=== PATIENT | female | born 1995 | race African-American/Black ===

== ENCOUNTER 2018-03-20 13:39 | Emergency (ER) | payer MEDICAID ==
[~2018-03-20] VITALS: Ht 167.6 cm; Wt 89.0 kg
[2018-03-20 13:42] VITALS: BP 128/65
[2018-03-20 16:50] LABS: CLARITY URINE TURBID (CLEAR); COLOR URINE YELLOW (YELLOW); KETONES URINE NEGATIVE (NEGATIVE); LEUKOCYTE ESTERASE URINE 3+ (NEGATIVE); NITRITE URINE NEGATIVE (NEGATIVE); OCCULT BLOOD URINE 2+ (NEGATIVE); PH URINE 6.5 (4.5-8.0); PROTEIN URINE 2+ (NEGATIVE); UROBILINOGEN URINE 0.2 E.U./dL (0.2-1.0)
== END 2018-03-20 17:43 | disposition home or self-care (01) ==
LOC: ER 14:03
DX: N30.01 Acute cystitis with hematuria (principal)
CPT/HCPCS: 81003; 81025; 87086; 99284

== ENCOUNTER 2020-08-04 08:43 | Emergency (ER) | payer MEDICAID ==
[~2020-08-04] VITALS: Ht 175.3 cm; Wt 113.0 kg
[2020-08-04] MEDS ORDERED: DOCUSATE SODIUM SUGAR FREE 100MG/10ML UDC NG ONE (10:00)
[2020-08-04 12:43] VITALS: BP 130/76
== END 2020-08-04 12:43 | disposition home or self-care (01) ==
LOC: ER 09:39
DX: T16.1XXA Foreign body in right ear, initial encounter (principal); H61.23 Impacted cerumen, bilateral; X58.XXXA Exposure to other specified factors, initial encounter; Y93.89 Activity, other specified; Y92.89 Other specified places as the place of occurrence of the external cause; Y99.8 Other external cause status
CPT/HCPCS: 69209; 81025; 99284

== ENCOUNTER 2023-04-24 07:28 | Emergency (ER) | payer MEDICAID ==
[~2023-04-24] VITALS: Ht 175.3 cm; Wt 104.0 kg
[2023-04-24 07:33] VITALS: BP 129/84; RESP 20; TEMP 98.7; O2SAT 98
[2023-04-24 07:36] VITALS: PULSE 100
[2023-04-24 09:20] LABS: BASOPHILS % 0.6 % (0.0-2.0); EOSINOPHILS % 0.4 % (0.0-5.0); HEMATOCRIT. 40.3 % (36.0-48.0); HEMOGLOBIN. 13.4 g/dL (12.0-16.0); LYMPHOCYTES % 29.6 % (20.0-50.0); MEAN CORPUSCULAR HEMOGLOBIN 30.4 pg (28.0-32.0); MEAN CORPUSCULAR HGB CONC 33.1 g/dL (31.0-37.0); MEAN CORPUSCULAR VOLUME 91.6 fL (81.0-99.0); MEAN PLATELET VOLUME 7.8 fl (7.4-10.4); MONOCYTES % 6.3 % (2.0-8.0); NEUTROPHILS % 63.1 % (40.0-76.0); PLATELET 268 x1000/uL (130-400); WHITE BLOOD COUNT 9.2 x1000/uL (4.5-11.0)
[2023-04-24 09:30] LABS: CHLORIDE 110 mEq/L (98-107); INDEX HEMOLYSI 1 (1-3); INDEX ICTERIC 1 (1-4); INDEX LIPEMIC 1 (1-3); POTASSIUM 4.2 mEq/L (3.5-5.1); SODIUM 137 mEq/L (136-145)
[2023-04-24 09:37] LABS: ALANINE AMINOTRANSFERASE 19 IU/L (13-61); ALBUMIN 3.7 g/dL (3.4-5.0); ASPARTATE AMINOTRANSFERASE 15 IU/L (15-37); BILIRUBIN TOTAL 0.3 mg/dL (0.1-1.0); CALCIUM 8.7 mg/dL (8.5-10.1); CARBON DIOXIDE 23 mEq/L (21-32); CREATININE 0.6 mg/dL (0.6-1.3); GLUCOSE 106 mg/dL (70-105); PROTEIN TOTAL 7.8 g/dL (6.0-8.3); UREA NITROGEN BLOOD 9 mg/dL (7-21)
[2023-04-24 09:40] LABS: HCG SCREEN NEGATIVE
[2023-04-24 09:57] LABS: CLARITY URINE CLEAR (CLEAR); COLOR URINE YELLOW (YELLOW); GLUCOSE URINE NEGATIVE (NEGATIVE); KETONES URINE NEGATIVE (NEGATIVE); LEUKOCYTE ESTERASE URINE NEGATIVE (NEGATIVE); NITRITE URINE NEGATIVE (NEGATIVE); OCCULT BLOOD URINE NEGATIVE (NEGATIVE); PROTEIN URINE NEGATIVE (NEGATIVE); SPECIFIC GRAVITY URINE 1.009 (1.005-1.030); UROBILINOGEN URINE 0.2 E.U./dL (0.2-1.0)
== END 2023-04-24 10:25 | disposition home or self-care (01) ==
LOC: ER 07:28
DX: R35.0 Frequency of micturition (principal)
CPT/HCPCS: 36415; 80053; 81003; 81025; 84703; 85025; 99283

== ENCOUNTER 2023-11-09 13:04 | Emergency (ER) | payer SELFPAY ==
[~2023-11-09] VITALS: Ht 172.7 cm; Wt 118.0 kg
[2023-11-09 13:11] VITALS: O2SAT 99
[2023-11-09] MEDS ORDERED: AMOX1TAB16 MT (13:33)
[2023-11-09 13:35] VITALS: BP 149/83; PULSE 82; RESP 12; TEMP 98.1
== END 2023-11-09 14:29 | disposition home or self-care (01) ==
LOC: ER 13:04
DX: S21.052A Open bite of left breast, initial encounter (principal); W50.3XXA Accidental bite by another person, initial encounter; Y93.89 Activity, other specified; Y92.89 Other specified places as the place of occurrence of the external cause; Y99.8 Other external cause status
CPT/HCPCS: 99283

== ENCOUNTER 2024-02-19 13:01 | Emergency (ER) | payer SELFPAY ==
[~2024-02-19] VITALS: Ht 175.3 cm; Wt 120.2 kg
[~2024-02-19 13:01] MED LIST: AMOX1TAB16 MT
[2024-02-19 13:10] VITALS: O2SAT 98
[2024-02-19] MEDS ORDERED: OFLO5DRO4 EACH EAR (13:57)
[2024-02-19] MEDS ORDERED: CETI10CA2 MT (14:00)
[2024-02-19 14:19] VITALS: BP 116/79; PULSE 69; RESP 18; TEMP 98.1
[2024-02-19] MEDS ORDERED: CIPHCO EACH EAR (14:21)
== END 2024-02-19 14:46 | disposition home or self-care (01) ==
LOC: ER 13:01
DX: H60.92 Unspecified otitis externa, left ear (principal)
CPT/HCPCS: 99283